=== PATIENT | male | born 1965 | race Caucasian/White ===

== ENCOUNTER 2023-08-17 12:46 | Emergency (ER) | payer MEDICARE, MEDICAID, SELFPAY ==
[2023-08-17] VITALS (9 sets, daily range): BP systolic 137–152; BP diastolic 83–93; PULSE 64–68; RESP 18; TEMP 36.4; O2SAT 96–98; BMI 28.2
--- NOTE | 2023-08-17 13:24 | CRLHL7_ITS ---
For Patients: As a result of the Century Cures Act, medical imaging exams and procedure reports are released immediately into your electronic medical record. You may view this report before your referring provider. If you have questions, please contact your health care provider. INDICATION: Syncope, neck pain. TECHNIQUE: CTA neck with contrast bolus tracking, 3D angiographic rendering using maximum intensity projection (MIP) and images permanently archived. FINDINGS: There is carotid atherosclerosis. There is no significant carotid artery stenosis or dissection. There is no significant vertebral artery stenosis or dissection. The soft tissues of the neck are within normal limits. The cervical spine is in normal alignment. Degenerative changes are noted in the cervical spine. IMPRESSION: No significant carotid or vertebral artery stenosis or dissection. Please note that all CT scans at this facility use dose modulation, iterative reconstruction, and/or weight-based dosing when appropriate to reduce radiation dose to as low as reasonably achievable. Dictated by Pete Mueller MD @ 08/17/2023 2:38:44 PM (Electronically Signed)
--- NOTE | 2023-08-17 13:24 | CRLHL7_ITS ---
For Patients: As a result of the Cures Act, medical imaging exams and procedure reports are released immediately into your electronic medical record. You may view this report before your referring provider. If you have questions, please contact your health care provider. INDICATION: Syncope, neck pain. TECHNIQUE: CT cervical spine without contrast. COMPARISON: None. FINDINGS: Vertebrae: There is loss of normal cervical lordosis with flexion through the upper and mid cervical spine which may be secondary to splinting and/or patient positioning. There are no fractures or suspicious bony lesions. Discs and facet joints: There is advanced degenerative disc disease at C4-C5 with posterior osteophytic ridging resulting and moderate bony spinal stenosis and bilateral foraminal stenosis. Extraspinal findings: Prevertebral soft tissues, visualized airway, and visualized lungs are unremarkable. Smooth ossification within the lower ligamentum nuchae is consistent with the sequelae of old soft tissue injury. IMPRESSION: 1. No fracture or subluxation. 2. Degenerative spondylosis of the cervical spine. 3. Loss of normal cervical lordosis which may be secondary to splinting and/or patient positioning. Please note that all CT scans at this facility use dose modulation, iterative reconstruction, and/or weight-based dosing when appropriate to reduce radiation dose to as low as reasonably achievable. Dictated by Elder Nolen MD @ 08/17/2023 2:43:19 PM (Electronically Signed)
--- NOTE | 2023-08-17 13:24 | CRLHL7_ITS ---
For Patients: As a result of the Century Cures Act, medical imaging exams and procedure reports are released immediately into your electronic medical record. You may view this report before your referring provider. If you have questions, please contact your health care provider. INDICATION: Syncope, neck pain. TECHNIQUE: CTA head with contrast bolus tracking, 3D angiographic rendering using maximum intensity projection (MIP) and images permanently archived. FINDINGS: There is normal opacification of the intracranial vasculature. There is no large vessel occlusion. No aneurysm is identified. IMPRESSION: Unremarkable head CTA. No large vessel occlusion. Please note that all CT scans at this facility use dose modulation, iterative reconstruction, and/or weight-based dosing when appropriate to reduce radiation dose to as low as reasonably achievable. Dictated by Pete Mueller MD @ 08/17/2023 2:36:26 PM (Electronically Signed)
--- NOTE | 2023-08-17 13:24 | CRLHL7_ITS ---
For Patients: As a result of the Century Cures Act, medical imaging exams and procedure reports are released immediately into your electronic medical record. You may view this report before your referring provider. If you have questions, please contact your health care provider. INDICATION: Syncope. Neck pain. TECHNIQUE: CT head without contrast. COMPARISON: None. FINDINGS: CSF spaces: Within normal limits for age. Brain parenchyma and extra-axial spaces: The hytat-white differentiation is normal. No sign of mass, hemorrhage, or midline shift. No extra-axial fluid collection. Skull base and calvarium: The visualized paranasal sinuses and mastoid air cells demonstrate no acute or significant findings. The visualized orbits are grossly unremarkable. No skull fractures. IMPRESSION: Unremarkable noncontrast head CT. Please note that all CT scans at this facility use dose modulation, iterative reconstruction, and/or weight-based dosing when appropriate to reduce radiation dose to as low as reasonably achievable. Dictated by Elder Nolen MD @ 08/17/2023 2:37:05 PM (Electronically Signed)
--- NOTE | 2023-08-17 13:29 | ED_ITS ---
HPI - General Adult General Date Seen: 08/17/23 Chief complaint: Syncope/Fainted Stated complaint: Fall--neck, arm pain Time Seen by Provider: 08/17/23 13:14 Source: patient, RN notes reviewed and other Mode of arrival: wheelchair Limitations: other History of Present Illness HPI narrative: Patient is a 58-year-old male here from a intermediate. He apparently had a syncopal episode, was going to get a drink of water and the next thing he remembers he was on the floor. Noted neck pain in the midline posteriorly when he woke up. He has a mild headache, complained of some nausea to the nurse although he denies it to me. senior care staff with him feels he is at baseline now, does not have a history of prior syncope or seizure. This episode was unwitnessed. He does not have any numbness or weakness, conversation with him suggests a component of developmental delay. Does not appear to be on any anticoagulants. Related Data Home Medications Medication Instructions Recorded Confirmed atenolol 25 mg tablet 25 mg PO DAILY 08/17/23 08/17/23 clotrimazole 1 % topical cream applic topical 08/17/23 famotidine 20 mg tablet 20 mg PO BID PRN heartburn 08/17/23 08/17/23 fluoride (sodium) 1.1 % dental applic PO 08/17/23 cream (Denta 5000 Plus) loratadine 10 mg tablet 10 mg PO DAILY 08/17/23 08/17/23 meloxicam 15 mg tablet 15 mg PO DAILY 08/17/23 08/17/23 omeprazole 20 mg capsule,delayed 20 mg PO BID 08/17/23 08/17/23 release simvastatin 40 mg tablet 40 mg PO QPM 08/17/23 08/17/23 triamcinolone acetonide 0.1 % topical 08/17/23 topical ointment Allergies Allergy/AdvReac Type Severity Reaction Status Date / Time seasonal Allergy Intermediate Uncoded 08/17/23 14:34 Review of Systems Status of ROS: Reports: 10 or more systems reviewed and unremarkable except as noted in History and below [facility] Social History Smoking Status: Unknown if ever smoked Exam Narrative: Exam Narrative: Vital signs as noted above. In general, an alert, nontoxic male, cooperative, conversant. Head: Normocephalic, atraumatic. Eyes: Pupils are equal reactive. Extraocular movements are full. Conjunctivae are normal. ENT: Mucous membranes are moist. Neck: Supple without lymphadenopathy. Nontender to palpation. Heart: Regular rate and rhythm. No murmur or rub. Lungs: Clear bilaterally. No increased work of breathing, crackles or wheezes. Abdomen: Soft and nontender. No organomegaly. Extremities: Well perfused. No edema. No calf tenderness. Pulses intact. Neurologic: Patient is alert and oriented to person. Speech is fluent, slightly dysarthric, baseline. Face is symmetric. Moves all extremities equally. Cerebellar function intact by finger-nose testing. Affect: Normal. Skin: Warm and dry. Well perfused. Const: Vital Signs, click to edit/add: Vital Signs - 24 hr 08/17/23 13:27 08/17/23 14:14 08/17/23 14:15 Temperature 97.5 F L Pulse Rate 67 66 Pulse Rate [Pulse Oximeter] 66 Respiratory Rate 18 Blood Pressure 148/89 H Blood Pressure [Ri ght Upper Arm] 152/93 H Pulse Oximetry 98 98 96 Oxygen Delivery Me thod Room Air 08/17/23 14:30 08/17/23 14:32 08/17/23 14:33 Temperature Pulse Rate 64 64 64 Pulse Rate [Pulse Oximeter] Respiratory Rate Blood Pressure 137/83 Blood Pressure [Ri ght Upper Arm] Pulse Oximetry 96 96 96 Oxygen Delivery Me thod 08/17/23 14:45 08/17/23 15:00 08/17/23 15:02 Temperature Pulse Rate 66 66 68 Pulse Rate [Pulse Oximeter] Respiratory Rate Blood Pressure 139/88 Blood Pressure [Ri ght Upper Arm] Pulse Oximetry 96 97 96 Oxygen Delivery Me thod Documenting provider has reviewed patient's vital signs: yes Course Course ED Course: Patient presents with what seems to be a syncopal episode and now with some neck pain. Diagnostic considerations would include causes of syncope such as arrh ythmia, orthostasis, vasovagal, metabolic/electrolyte derangement, seizure, stroke among others. Neck pain could be related to the fall, rule out alternate explanation such as dissection. He will have a head CT, cervical spine CT as well as a CT angiogram of the head and neck, labs, EKG. Maintain on the monitor. Workup here is unremarkable. Head CT by my review is negative, as is the cervical spine CT for acute findings. Final radiology reads are negative. CT angio read as no acute findings as well. I took the cervical collar off, he says his neck is feeling better, he does not have posterior midline tenderness and I think cervical spine can be adequately cleared. In terms of his syncopal episode, his EKG shows a sinus rhythm, ventricular rate of 64, corrected QT of 402 milliseconds, normal OR. No acute findings. Labs showed normal white count, normal hemoglobin, normal electrolytes, renal function and a troponin of 0. He was maintained on the monitor without any signs of ectopy or arrhythmia. I think it is reasonable to let him go home. Discussed that I do not know exactly why he fainted today but workup here does not show evidence of a concerning cause. If he is having repeated episodes of syncope. This should be evaluated further. Neck pain likely muscular, Tylenol as needed, ice may be helpful as well. Return at any time for acute worsening or frequent fainting spells. Vital Signs Vital signs: Initial Vital Signs Temperature 97.5 F L 08/17/23 13:27 Temperature Source Temporal Artery Scan 08/17/23 13:27 Pulse Rate 66 08/17/23 13:27 Pulse Rhythm Regular 08/17/23 13:27 Respiratory Rate 18 08/17/23 13:27 Blood Pressure 152/93 H 08/17/23 13:27 Blood Pressure Mean 112 H 08/17/23 13:27 Blood Pressure Position Sitting 08/17/23 13:27 Pulse Oximetry 98 08/17/23 13:27 Oxygen Delivery Method Room Air 08/17/23 13:27 Vital Signs Temperature 97.5 F L 08/17/23 13:27 Pulse Rate 66 08/17/23 13:27 Respiratory Rate 18 08/17/23 13:27 Blood Pressure 152/93 H 08/17/23 13:27 Pulse Oximetry 98 08/17/23 13:27 Oxygen Delivery Method Room Air 08/17/23 13:27 Temperature 97.5 F L 08/17/23 13:27 Pulse Rate 68 08/17/23 15:02 Respiratory Rate 18 08/17/23 13:27 Blood Pressure 139/88 08/17/23 15:02 Pulse Oximetry 96 08/17/23 15:02 Oxygen Delivery Method Room Air 08/17/23 13:27 Medications Administered Medications: Discontinued Medications Generic Name Dose Route Start Last Admin Trade Name Freq PRN Reason Stop Dose Admin Sodium Chloride 1,000 mls @ 1,000 mls/hr 08/17/23 13:30 08/17/23 15:10 0.9 % Sodium Chloride 1000 Ml IV 08/17/23 14:29 Infused .Q1H THANG Infusion Medical Decision Making Lab Data Labs: Lab Results 08/17/23 08/17/23 08/17/23 Range/Units 13:25 13:30 13:53 WBC 10.39 (4.50-11.00) K/uL RBC 5.44 (4.30-5.90) m/uL Hgb 15.2 (13.5-17.5) gm/dL Hct 45.4 (37.0-53.0) % MCV 84 (80-100) fL MCH 28 (26-34) pg MCHC 34 (32-36) gm/dL RDW Coeff of Sol 13.8 (11.5-15.5) % Plt Count 227 (140-440) K/uL Neut % (Auto) 68.0 (42.0-72.0) % Lymph % (Auto) 21.4 (20-44) % Hopkins % (Auto) 8.6 (0.0-11.0) % Eos % (Auto) 1.3 (0.0-7.0) % Baso % (Auto) 0.4 (0.0-3.0) % Neut # (Auto) 7.07 H (1.7-7.0) K/uL Lymph # (Auto) 2.22 (0.90-2.90) K/uL Hopkins # (Auto) 0.90 (0.00-0.90) K/UL Eos # (Auto) 0.14 (0.00-0.50) K/uL Baso # (Auto) 0.04 (0.00-0.30) K/uL Abs Immat Gran (auto) 0.03 (0.00-0.30) K/uL Imm/Tot Granulo (auto) 0.3 % Sodium 137 (135-149) mmol/L Potassium 3.7 (3.6-5.1) mmol/L Chloride 101 (96-114) mmol/L Carbon Dioxide 29 (20-32) mmol/L Anion Gap 7 (7-15) mEq/L BUN 17 (7-30) mg/dL Creatinine 0.9 (0.5-1.5) mg/dL Estimated Creat Clear 81.60 Estimated GFR 98 ml/min Glucose 95 (60-115) mg/dL Calcium 9.4 (8.4-10.6) mg/dL POC Creatinine 1.0 (0.6-1.3) mg/dl POC Troponin I 0.00 L (0.01-0.04) ng/ml Discharge Plan Discharge Clinical Impression: Syncope, Neck pain Patient Disposition: Home w/ Parent or Adult Condition: Improved Instructions: Syncope (DC), Neck Pain (ED) Additional Instructions: Tylenol and or ice as needed for neck pain or other soreness. For severe uncontrolled pain or new symptoms such as radiating pain, weakness, numbness, severe headache, return at any time for re-evaluation. I would recommend re- evaluation your primary clinic regarding your fainting spell. Prescriptions: No Action meloxicam 15 mg tablet 15 mg PO DAILY atenolol 25 mg tablet 25 mg PO DAILY simvastatin 40 mg tablet 40 mg PO QPM famotidine 20 mg tablet 20 mg PO BID PRN (Reason: heartburn) triamcinolone acetonide 0.1 % ointment topical omeprazole 20 mg capsule,delayed release(DR/EC) 20 mg PO BID clotrimazole 1 % cream topical loratadine 10 mg tablet 10 mg PO DAILY fluoride (sodium) [Denta 5000 Plus] 1.1 % cream PO Follow Up/Referrals: Provider,Not a Local [Primary Care Provider] - Stand Alone Forms: [facility] Inst[facility]
[2023-08-17 13:45] LABS: Basophils Absolute Auto 0.04 K/uL (0.00-0.30); Basophils Percent Auto 0.4 % (0.0-3.0); Eosinophils Absolute Auto 0.14 K/uL (0.00-0.50); Eosinophils Percent Auto 1.3 % (0.0-7.0); Hematocrit 45.4 % (37.0-53.0); Hemoglobin* 15.2 gm/dL (13.5-17.5); Immature Granulocytes Abs Auto 0.03 K/uL (0.00-0.30); Immature Granulocytes Pct Auto 0.3 %; Lymphocytes Absolute Auto 2.22 K/uL (0.90-2.90); Lymphocytes Percent Auto 21.4 % (20-44); Mean Corpuscular HGB Conc 34 gm/dL (32-36); Mean Corpuscular Hemoglobin 28 pg (26-34); Mean Corpuscular Volume 84 fL (80-100); Monocytes Percent Auto 8.6 % (0.0-11.0); Neutrophils Absolute Auto 7.07 K/uL (1.7-7.0); Platelet Count* 227 K/uL (140-440); RDW Coefficient of Variation % 13.8 % (11.5-15.5); Red Blood Count 5.44 m/uL (4.30-5.90); White Blood Count* 10.39 K/uL (4.50-11.00)
[2023-08-17 14:13] LABS: Slide Review Reflex No
[2023-08-17] MEDS: 0.9 % SODIUM CHLORIDE 1000 ml 1,000 ML IV (14:15)
[2023-08-17 14:17] LABS: Chloride* 101 mmol/L (96-114); Sodium* 137 mmol/L (135-149)
[2023-08-17 14:18] LABS: Potassium* 3.7 mmol/L (3.6-5.1)
[2023-08-17 14:20] LABS: Anion Gap 7 mEq/L (7-15); Blood Urea Nitrogen* 17 mg/dL (7-30); Carbon Dioxide* 29 mmol/L (20-32); Creatinine* 0.9 mg/dL (0.5-1.5); Estimated Glomerular Filt Rate 98 ml/min
[2023-08-17 14:21] LABS: Calcium* 9.4 mg/dL (8.4-10.6); Glucose* 95 mg/dL (60-115)
== END 2023-08-17 15:11 | disposition home or self-care (01) ==
PROVIDERS: Emergency Provider Emergency Medicine
DX: R55 Syncope and collapse (principal); M54.2 Cervicalgia
CPT/HCPCS: 36415; 70450; 70496; 70498; 72125; 80048; 82565; 84484; 85025; 93005; 96360; 99284; 99285; J7030; Q9967